=== PATIENT | female | born 1985 | race Caucasian/White ===

== ENCOUNTER 2019-03-21 19:37 | Inpatient (IN) | payer OTHER ==
[~2019-03-21] VITALS: Ht 175.3 cm; Wt 139.3 kg
[2019-03-21] MEDS ORDERED: CEFAZOLIN 2 GM IVPB PREMIX 50 ML IV ONE (22:30)
[2019-03-21 22:55] LABS: MEAN CORPUSCULAR HEMOGLOBIN 30 pg (27-31); PLATELET COUNT (AUTO) 178 K/uL (130-430)
[2019-03-21 22:59] LABS: BILIRUBIN,URINE NEGATIVE (NEGATIVE); CLARITY/URINE CLEAR (CLEAR); COLOR,URINE YELLOW (YELLOW); GLUCOSE,URINE NEGATIVE (NEGATIVE); KETONES,URINE NEGATIVE (NEGATIVE); LEUKOCYTE ESTERASE ,URINE NEGATIVE (NEGATIVE); NITRITE, URINE NEGATIVE (NEGATIVE); PH,URINE 6.5 (5.0-8.0); PROTEIN URINE TRACE (NEGATIVE); UROBILINOGEN,URINE 0.2 (0.2-1.0)
[2019-03-21 23:00] LABS: BLOOD, URINE TRACE (NEGATIVE)
[2019-03-21 23:01] LABS: BASOPHILS % (AUTO) 0.3 % (0.0-2.0); EOSINOPHILS % (AUTO) 0.2 % (0.0-4.0); HEMATOCRIT 39.3 % (36-48); HEMOGLOBIN 13.5 g/dL (12.0-16.0); LYMPHOCYTES # (AUTO) 2.8 K/uL (1.0-5.5); LYMPHOCYTES % (AUTO) 28.2 % (20.5-51.5); MEAN CORPUSCULAR HGB CONC 34 % (32-36); MEAN CORPUSCULAR VOLUME 87 fL (79.0-98.0); MONOCYTES % (AUTO) 10.4 % (1.7-9.3); NEUTROPHILS # (AUTO) 6.1 K/uL (1.8-7.7); NEUTROPHILS % (AUTO) 60.9 % (40.0-70.0); RED BLOOD CELL COUNT(AUTO) 4.53 MIL/uL (4.2-6.2); RED CELL DISTRIBUTION WIDTH 13.5 % (9.0-15.0); WHITE BLOOD COUNT (AUTO) 10.1 K/uL (4.8-10.8)
[2019-03-21 23:04] LABS: BACTERIA,URINE FEW /HPF (None Seen); WBC,URINE 0-3 /HPF (0-3)
[2019-03-21 23:18] LABS: CALCIUM 8.9 mg/dL (8.4-11.0); CREATININE 0.94 mg/dL (0.55-1.30)
[2019-03-21 23:23] LABS: ALBUMIN 2.4 g/dL (3.4-4.8); TOTAL BILIRUBIN 0.2 mg/dL (0.0-1.0); URIC ACID 6.4 mg/dL (2.4-7.0)
[2019-03-21 23:35] VITALS: BP_SYST 131
[2019-03-22] MEDS: LR 1,000 ML IV SCH (06:37)
[2019-03-22] MEDS ORDERED: fentaNYL CITRATE/PF 100 MCG/2 ML AMP ONE (09:12)
[2019-03-22] MEDS ORDERED: LR 1,000 ML IV SCH ×2 (10:40→14:48)
[2019-03-22] MEDS ORDERED: NALOXONE HCL 0.4 MG/ML AMP (NARCAN) IVP PRN (10:45)
[2019-03-22] MEDS ORDERED: MORPHINE SULFATE 10MG/10ML PF AMP SP SCH (10:45)
[2019-03-22] MEDS ORDERED: ONDANSETRON HCL 4 MG/2 ML VIAL IVP PRN (10:45)
[2019-03-22] MEDS ORDERED: DIPHENHYDRAMINE INJ 50 MG/ML VIAL IM PRN (10:45)
[2019-03-22] MEDS ORDERED: METOCLOPRAMIDE HCL 10 MG/2 ML VIAL IVP PRN (10:45)
[2019-03-22] MEDS ORDERED: KETOROLAC TROMETHAMINE 60 MG/2 ML VIAL IM PRN (10:45)
[2019-03-22 11:05] VITALS: BP_SYST 107
[2019-03-22] MEDS ORDERED: OXYTOCIN/0.9 % SODIUM CHLORIDE 1,000 ML IV ONE ×2 (11:35→14:48)
[2019-03-22] MEDS ORDERED: HYDROcodone/ACETAMIN 5-325 MG TAB (NORCO/ VICODIN) PO PRN (15:00)
[2019-03-22] MEDS ORDERED: LANOLIN 7 GM OINT. TP PRN (15:00)
[2019-03-22] MEDS ORDERED: KETOROLAC TROMETHAMINE 30 MG VIAL IVP PRN (18:00)
[2019-03-22] MEDS: CEFAZOLIN 1 GM IVPB PREMIX 50 ML IV SCH (18:11)
[2019-03-22] MEDS ORDERED: METOCLOPRAMIDE HCL 10 MG TABLET PO SCH (20:30)
[2019-03-23] MEDS: CEFAZOLIN 1 GM IVPB PREMIX 50 ML IV SCH ×2 (00:01→05:34)
[2019-03-23] MEDS ORDERED: ceFAZolin SODIUM 1 GM VIAL ONE (03:35)
[2019-03-23] MEDS: LR 1,000 ML IV SCH (05:00)
[2019-03-23 06:14] LABS: BASOPHILS % (AUTO) 0.3 % (0.0-2.0); EOSINOPHILS % (AUTO) 0.3 % (0.0-4.0); HEMATOCRIT 37.7 % (36-48); HEMOGLOBIN 12.5 g/dL (12.0-16.0); LYMPHOCYTES % (AUTO) 16.6 % (20.5-51.5); MEAN CORPUSCULAR HEMOGLOBIN 29 pg (27-31); MEAN CORPUSCULAR HGB CONC 33 % (32-36); MEAN CORPUSCULAR VOLUME 88 fL (79.0-98.0); MONOCYTES # (AUTO) 1.2 K/uL (0.0-1.0); MONOCYTES % (AUTO) 9.5 % (1.7-9.3); NEUTROPHILS # (AUTO) 8.9 K/uL (1.8-7.7); NEUTROPHILS % (AUTO) 73.3 % (40.0-70.0); PLATELET COUNT (AUTO) 159 K/uL (130-430); RED CELL DISTRIBUTION WIDTH 13.6 % (9.0-15.0); WHITE BLOOD COUNT (AUTO) 12.1 K/uL (4.8-10.8)
[2019-03-23] MEDS ORDERED: KETOROLAC TROMETHAMINE 30 MG VIAL ONE (06:40)
[2019-03-23] MEDS: DOCUSATE SODIUM 100 MG CAPSULE PO PRN (11:22)
[2019-03-23] MEDS: SIMETHICONE 80 MG TAB.CHEW PO PRN (14:14)
[2019-03-23] MEDS: HYDROcodone/ACETAMIN 5-325 MG TAB (NORCO/ VICODIN) PO PRN ×3 (14:15→23:00)
[2019-03-23] MEDS: IBUPROFEN 600 MG TABLET PO SCH (17:44)
[2019-03-24] MEDS: IBUPROFEN 600 MG TABLET PO SCH ×5 (00:31→23:50)
[2019-03-24] MEDS: HYDROcodone/ACETAMIN 5-325 MG TAB (NORCO/ VICODIN) PO PRN ×2 (02:43→08:27)
[2019-03-24] MEDS: SIMETHICONE 80 MG TAB.CHEW PO PRN ×2 (08:26→16:40)
[2019-03-24] MEDS: DOCUSATE SODIUM 100 MG CAPSULE PO PRN (08:26)
[2019-03-24] MEDS: oxyCODONE HCL 5 MG TABLET PO PRN ×2 (14:39→20:18)
[2019-03-25] MEDS: oxyCODONE HCL 5 MG TABLET PO PRN (05:06)
[2019-03-25] MEDS: IBUPROFEN 600 MG TABLET PO SCH ×2 (05:06→11:47)
[2019-03-25] MEDS: DOCUSATE SODIUM 100 MG CAPSULE PO PRN (09:55)
[2019-03-25] MEDS: SIMETHICONE 80 MG TAB.CHEW PO PRN (09:55)
[2019-03-25] MEDS: HYDROcodone/ACETAMIN 5-325 MG TAB (NORCO/ VICODIN) PO PRN (11:48)
== END 2019-03-25 12:45 | disposition home or self-care (01) | DRG 788 ==
LOC: SPU 22:00
PROVIDERS: ADMIT Specialist; ATTEND Specialist
PROC: 10D00Z1 Extraction of Products of Conception, Low, Open Approach (ICD-10-PCS; principal; 2019-03-22 10:05)
DX: O10.92 Unspecified pre-existing hypertension complicating childbirth (principal); O34.211 Maternal care for low transverse scar from previous cesarean delivery; O99.214 Obesity complicating childbirth; E66.01 Morbid (severe) obesity due to excess calories; O11.4 Pre-existing hypertension with pre-eclampsia, complicating childbirth; Z3A.38 38 weeks gestation of pregnancy; Z37.0 Single live birth
CPT/HCPCS: 36415; 80053; 81000-TC; 84550-TC; 85025; 85384-TC; 86592; 86886; 86900; 86901; J0690; J1885; J2405; J2590; J2765; J3010; J8597